=== PATIENT | female | born 1990 | race Caucasian/White ===

== ENCOUNTER → 2018-05-25 08:30 | Outpatient (CLI) | payer OTHER, SELFPAY | PROVIDERS: Family Provider Internal Medicine; PCP Internal Medicine; Visit Provider Family Medicine | DX: Z53.8 Procedure and treatment not carried out for other reasons (principal) ==

== ENCOUNTER → 2018-06-15 12:00 | Outpatient (CLI) | payer OTHER, MEDICAID, SELFPAY ==
--- NOTE | 2018-06-15 12:02 | DI.US.S_ITS ---
PROCEDURE: US OB <= 14 WEEKS FETUS INDICATIONS: DATES OUTSIDE/PRIOR DATING DATA: Last menstrual period (LMP): Unknown. LMP-based estimated date of delivery (KAIN): N./A.. First dating scan (date and location): 06/15/18. Estimated date of delivery (KAIN) from first dating scan: 01/27/19. TECHNIQUE: Real-time scanning was performed of the fetus and maternal pelvic organs, with image documentation. COMPARISON: None. FINDINGS: Embryo: Lambert-rump length measures 1.4 cm corresponding to 7 weeks 5 days. Heart rate measures 163 beats per minute. Measurement variability in dating: +/- 4 weeks by LMP, +/- 7 days by mean sac diameter (use before 6 weeks gestation if crown-rump length not able to be measured), +/- 5 days by crown-rump length (up to 8 weeks 6 days gestation), +/- 7 days by crown-rump length (up to 13 weeks 6 days gestation). Maternal organs: Ovaries within normal limits. Limited images through the kidneys demonstrate no hydronephrosis. IMPRESSION: 7 week 5 day single living IUP. Dictated by: Aakash Caro [facility] Interpreted: Uli Reyez MD on 06/15/2018 at 14:02 Approved by: Uli Reyez M.D. on 06/15/2018 at 18:04
== END ==
PROVIDERS: PCP Internal Medicine; Visit Provider Family Medicine
DX: Z34.91 Encounter for supervision of normal pregnancy, unspecified, first trimester (principal); Z3A.01 Less than 8 weeks gestation of pregnancy
CPT/HCPCS: 76801; 76817

== ENCOUNTER → 2018-06-17 10:00 | Outpatient (CLI) | payer OTHER, MEDICAID, SELFPAY ==
[2018-06-17 10:56] LABS: Add Manual Diff / Slide Review NO; Basophils Percent Auto 0.3 % (0-2); Eosinophils Percent Auto 0.3 % (2-4); Hematocrit 40.9 % (36-46); Lymphocytes Percent Auto 26.1 % (25-40); Mean Corpuscular HGB Conc 34.1 % (30-36); Mean Corpuscular Hemoglobin 31.5 PG (26-34); Mean Corpuscular Volume 92.2 fL (80-100); Monocytes Percent Auto 4.8 % (3-14); Neutrophils Absolute Auto 5400 /uL (3000-5900); Neutrophils Percent Auto 68.5 % (50-75); Platelet Count 208 X10^3/uL (150-400); Red Blood Cell Count 4.43 X10^6/uL (4.0-5.2); Red Cell Distribution Width 13.2 % (11.6-14.8); White Blood Cell Count 7.9 X10^3/uL (4.5-11.0)
[2018-06-17 11:57] LABS: Appearance Urine UA CLEAR; Bilirubin Urine UA NEGATIVE (NEGATIVE); Color Urine UA YELLOW; Glucose Urine UA NEGATIVE (Normal); Ketones Urine UA NEGATIVE (NEGATIVE); Leukocyte Esterase Urine UA NEGATIVE (NEGATIVE); Nitrite Urine UA NEGATIVE (Negative); Occult Blood Urine UA NEGATIVE (Negative); Protein Urine UA NEGATIVE (Negative); Specific Gravity Urine UA 1.015 (1.000-1.035); Urobilinogen Urine UA 0.2 E.U./dL (0.2); pH Urine UA 7.5 (4.5-8.0)
[2018-06-17 12:10] LABS: Hepatitis B Surface Antigen NEGATIVE s/c (NEGATIVE); Rubella Antibody IgG 52.7 IU/mL (>15)
[2018-06-17 12:29] LABS: HIV 1 and 2 Antibody NEGATIVE (NEGATIVE); Hep C Virus Ab w/Reflex Quant NEGATIVE s/c (NEGATIVE)
[2018-06-18 14:30] LABS: HSV 2 IGG AB < 0.90 index (< 0.90); HSV1IGG 8.48 index (< 0.90)
[2018-06-18 14:32] LABS: RPR Screen Nonreactive (Nonreactive)
== END ==
PROVIDERS: PCP Internal Medicine; Visit Provider Family Medicine
DX: Z34.81 Encounter for supervision of other normal pregnancy, first trimester (principal); Z3A.01 Less than 8 weeks gestation of pregnancy
CPT/HCPCS: 36415; 80055; 81003; 86695; 86696; 86703; 86787; 86803; 86850; 86900; 86901

== ENCOUNTER → 2018-08-21 09:41 | Outpatient (CLI) | payer OTHER, MEDICAID, SELFPAY ==
[2018-08-25 14:29] LABS: AFP, Serum 46.4 ng/mL; Calc Gestational Age 17.6; Cigarette Smoker N; Donated Egg NOT GIVEN; Donor Egg Age NOT GIVEN; Estriol, Free 1.14 ng/mL; Inhibin A, Dimeric 108 pg/mL; Maternal Weight 170 lbs; Number of Fetuses 1; Previous Pregnancy Down Syndro NOT GIVEN; hCG, MoM 0.79; hCG, Serum 18.7 IU/mL
== END ==
PROVIDERS: PCP Internal Medicine; Visit Provider Family Medicine
DX: Z34.91 Encounter for supervision of normal pregnancy, unspecified, first trimester (principal); Z3A.16 16 weeks gestation of pregnancy
CPT/HCPCS: 36415; 82105; 82677; 84702; 86336

== ENCOUNTER → 2018-09-10 10:07 | Outpatient (CLI) | payer OTHER, MEDICAID, SELFPAY ==
--- NOTE | 2018-09-10 10:10 | DI.US.S_ITS ---
PROCEDURE: US OB >= 14 WEEKS FETUS INDICATIONS: ANATOMY OUTSIDE/PRIOR DATING DATA: Last menstrual period (LMP): Unknown. LMP-based estimated date of delivery (KAIN): N./A.. First dating scan (date and location): 06/15/18. Estimated date of delivery (KAIN) from first dating scan: 01/27/19.. TECHNIQUE: Real-time scanning was performed of the fetus, with image documentation and biometric measurements. Endovaginal scanning: No COMPARISON: [facility], OB <= 14 WEEKS FETUS, 06/15/2018, 12:29. FINDINGS: General: A single living intrauterine gestation is present. Presentation: Vertex. Placenta: Placental position is anterior, without previa. Amniotic fluid index: 18.0 cm, normal range is 5-24 cm. heart rate: 155 beats per minute. Maternal cervical canal: 3.2 cm long. Normal lower limit is 2.5 cm. biometrics: Biparietal diameter: 20 weeks 6 days Head circumference: 21 weeks 5 days Abdominal circumference: 21 weeks 4 days Femur length: 20 weeks 3 days Estimated gestational age from initial scan: 20 weeks 1 day Composite gestational age from present scan: 21 weeks 1 day Estimated weight and percentile: 399 g; 91st percentile Measurement variability for biometric dating: +/- 7 days from 14 weeks to 15 weeks 6 days gestation, +/- 10 days from 16 weeks to 21 weeks 6 days gestation, +/- 2 weeks from 22 weeks to 27 weeks 6 days gestation, +/- 3 weeks for 28 weeks gestation or later. weight reference: 4500 g or EFW >90/95% is considered macrosomia or large for gestational age. EFW <10% is small for gestational age. EFW 5% or less is considered intra-uterine growth restriction. Anatomic survey: Neuro: Ventricles are non-dilated at less than 10 mm. Cisterna magna is normal at 3-11 mm. Cerebellum is normal in size and morphology. Nuchal skin fold: Normal at less than 6 mm between 14-21 weeks gestational age. Face: Nose and lips, facial profile are normal. Spine: No evidence for spina bifida. Heart: 4-chambered heart is present, with normal ventricular outflow tracts. Diaphragm: Diaphragm is intact. Stomach: Left-sided stomach is present. Kidneys: No hydronephrosis. Normal is less than 5 mm in 2nd trimester, less than 7 mm in 3rd trimester. Cord: 3-vessel cord has orthotopic insertion. Bladder: Normal in size. Extremities: All 4 extremities identified. IMPRESSION: 1. Single living intrauterine demonstrating interval growth with estimated weight at the 91st percentile. Recommend continued attention on followup 2. Normal anatomic survey. Dictated by: Aakash Caro [facility] Interpreted: Valerio Croft MD on 09/10/2018 at 14:40 Approved by: Valerio Croft M.D. on 09/10/2018 at 15:16
== END ==
PROVIDERS: PCP Internal Medicine; Visit Provider Family Medicine
DX: Z36.89 Encounter for other specified antenatal screening (principal); Z3A.21 21 weeks gestation of pregnancy
CPT/HCPCS: 76811

== ENCOUNTER → 2018-10-16 09:15 | Outpatient (CLI) | payer OTHER, MEDICAID, SELFPAY ==
[2018-10-16 11:32] LABS: Hemoglobin 12.4 g/dL (12.0-16.0)
[2018-10-16 11:48] LABS: GTT (PREG) 1 Hour PP 50gm Dose 90 mg/dL (76-139)
== END ==
PROVIDERS: PCP Internal Medicine; Visit Provider Family Medicine
DX: Z34.82 Encounter for supervision of other normal pregnancy, second trimester (principal); Z3A.26 26 weeks gestation of pregnancy
CPT/HCPCS: 36415; 82950; 85014; 85018

== ENCOUNTER → 2018-12-14 13:06 | Outpatient (CLI) | payer OTHER, MEDICAID, SELFPAY ==
--- NOTE | 2018-12-14 13:10 | DI.US.S_ITS ---
PROCEDURE: US OB LIMITED INDICATIONS: MACROSOMIA OUTSIDE/PRIOR DATING DATA: Last menstrual period (LMP): Not available. LMP-based estimated date of delivery (KAIN): Not available. First dating scan (date and location): 06/15/18. Estimated date of delivery (KAIN) from first dating scan: The 01/27/19. TECHNIQUE: Real-time scanning was performed of the fetus, with image documentation. Endovaginal scanning: Not needed for this study COMPARISON: None. FINDINGS: A single living intrauterine gestation is present. Presentation: Vertex. Placenta: Placental position is anterior, without previa. Amniotic fluid index: 10.1 cm, normal range is 5-24 cm. heart rate: 125 beats per minute. Maternal cervical canal: Not well seen due to positioning Estimated gestational age from initial scan: 35 weeks 1 day biometry is internally consistent with a current gestational age estimate of 34 weeks 5 days, and therefore there has been appropriate interval growth with the current estimated gestational weight of 2557 g, at the 42nd percentile for current gestational age. IMPRESSION: Appropriate interval growth, no sign of macrosomia or normally elevated amniotic fluid volume. The delivery date is projected to be centered on 01/27/19, plus or -5 days, with reference to the earliest available OB ultrasound dated 06/15/18. Dictated by: Mitchel Ariza M.D. on 12/14/2018 at 14:17 Approved by: Mitchel Ariza M.D. on 12/14/2018 at 14:19
== END ==
PROVIDERS: PCP Internal Medicine; Visit Provider Family Medicine
DX: O36.63X0 Maternal care for excessive fetal growth, third trimester, not applicable or unspecified (principal); Z3A.35 35 weeks gestation of pregnancy
CPT/HCPCS: 76815

== ENCOUNTER → 2018-12-25 11:07 | Outpatient (CLI) | payer OTHER, MEDICAID, SELFPAY ==
[2018-12-26 10:36] LABS: Strep Grp B PCR NEG for Grp B Strep
== END ==
PROVIDERS: PCP Internal Medicine; Visit Provider Family Medicine
DX: Z34.83 Encounter for supervision of other normal pregnancy, third trimester (principal); Z3A.36 36 weeks gestation of pregnancy
CPT/HCPCS: 87653

== ENCOUNTER 2019-01-27 09:53 | Outpatient (CLI) | payer OTHER, MEDICAID, SELFPAY ==
--- NOTE | 2019-01-27 10:35 | PM.OBTRLD ---
Visit Information Visit Information Date of evaluation: 01/27/19 Primary OB Provider: Sofi Martin On-call OB Provider: Antoinette Mares Reason for Evaluation: Yes rupture of membranes Vital Signs Vital Signs: Blood pressure 137/90, pulse of 85 PFSH Social History Smoking Status: Former smoker Evaluation Evaluation Baseline heart rate: 130 Variability: Moderate (11-25) monitor accelerations: Present monitor decelerations: Absent Contraction Frequency (minutes): 5 Uterine Contraction Intensity: Mild Category of Tracing: I Non-invasive Membranes Rupture Test: negative Diagnosis, Plan/Disposition Final Diagnosis (1) 40 weeks gestation of : Current Visit: Yes Status: Acute (2) Premature uterine contractions: Current Visit: Yes Status: Acute Plan/Disposition Plan: Patient does not appear to be in active labor and AmniSure was negative for rupture membranes. Patient was discharged OB Disposition: home
== END 2019-01-27 10:42 | disposition home or self-care (01) ==
LOC: LABOR 10:10 → OB 02-02 08:09
PROVIDERS: PCP Internal Medicine; Visit Provider Family Medicine
DX: Z3A.40 40 weeks gestation of pregnancy (principal); O47.9 False labor, unspecified
CPT/HCPCS: 59025; 84112; G0378; G0379

== ENCOUNTER 2019-01-28 09:01 | Inpatient (IN) | payer OTHER, MEDICAID, SELFPAY ==
[2019-01-28] MEDS: MORPHINE 10 MG/ML INJ IM (10:50)
[2019-01-28] MEDS: OXYTOCIN 10 UNIT/ML VIAL IM (10:50)
--- NOTE | 2019-01-28 11:02 | PM.OBPRVD ---
Delivery date: 01/28/19 Intrapartal events: Precipitous Labor < 3 hours Delivery monitor: external FHT Route of delivery: L&D Laceration Description: None Estimated blood loss (mL): 100 Anesthesia type: None Narrative: Patient is a 28-year-old at 40 weeks and 3 days gestation KAIN: 01/25/19 Hospital problems: 40 weeks of Contractions began at approximately 6:30 a.m.. Patient presented to the center at 9:15 a.m. and was found to be 3 cm. heart tones were category 2 due to intermittent variable decelerations. At approximately 10:00 a.m. contractions became much more painful. At 10:35 a.m. patient was found to be complete and pushing involuntarily. delivered at 10:38 a.m. after reduction of a nuchal cord x1. Presentation was vertex and NATE. Infant was immediately placed on mother's abdomen. Cord was clamped and cut. Apgars were 8 and 9. No resuscitation of the required. No analgesia for labor. Placenta delivered spontaneously at 10:49 a.m. with a three-vessel cord and appeared intact. Uterine fundus firm at umbilicus. There were no perineal or vaginal lacerations. IM Pitocin given after delivery of placenta. Complications: None EBL: 100 mL. Needle and sponge counts were correct. The vagina was inspected and no items were left in situ. Patient was doing well with Antoine, her and fiancee at bedside. Baby 1: gender: Male Presentation: vertex Placenta delivery description: Spontaneous cord vessel description: Nuchal Cord (x1, reduced) score (1 min): 8 score (5 min): 9
--- NOTE | 2019-01-28 11:03 | P.HPOB_ITS ---
OB HPI Date/Time Date of admission: 01/28/19 Date Patient Seen: 01/28/19 Time Patient Seen: 10:30 History of Present Condition Chief complaint: OBS : 2 Para: 1 Estimated Date of Delivery: 01/25/19 Estimated Gestational Age (weeks): 40w3d Narrative: Jeanette Byrd is a 28 year old at 40 weeks and 3 days gestation. complicated by history of HSV only on prophylactic acyclovir with no outbreaks is . Patient presented to the Center with regular contractions since approximately 6:30 a.m.. History of Present care: good care, initiated at week # (9), number of visits (13) and pounds weight gain (55 lbs) Dating criteria: LMP confirmed by 1st trimester US Ultrasounds: normal 1st trimester US and normal mid trimester US Obstetrical complications: none Medical complications: none Preadmission Labs Blood type: O (+) positive -: Antibody screen: negative, GBS status: negative, HBsAG: negative, HIV: negative, HSV 1: positive, HSV 2: negative and RPR/VDLR: negative -: Chlamydia screen: not detected and Gonorrhea screen: not detected -: Varicella: immune HCT: 40.9 PAP: Normal Quad screen: Normal 1 hr GTT: 90 Prior (ies) History: 2014 at 40 weeks and 1 day, 8 lb 6 oz female, epidural, breast-fed 14 months Evaluation Evaluation Baseline heart rate: 125 Variability: Moderate (11-25) monitor accelerations: Present monitor decelerations: Variable Contraction Frequency (minutes): 2 Uterine Contraction Intensity: Strong/Firm Category of Tracing: II Cervical dilation (cm): 10 Cervical effacement (%): 100 station: +3 [facility] Medical History (Updated 01/28/19 @ 14:19 by Sofi Martin DO) Herpes (Chronic ~2011) H/O wisdom tooth extraction (Resolved) (spontaneous vaginal delivery) (Resolved) Surgical History S/P tonsillectomy (Resolved) Family History Grandfather No problems noted. Grandmother No problems noted. Social History (Updated 01/28/19 @ 14:19 by Sofi Martin DO) marital status: unmarried,living together number of children: 1 education level: high school occupational status: employed Smoking Status: Former smoker alcohol intake: former substance use type: does not use Family History Grandfather No problems noted. Grandmother No problems noted. Social History (Updated 01/28/19 @ 14:19 by Sofi Martin DO) marital status: unmarried,living together number of children: 1 education level: high school occupational status: employed Smoking Status: Former smoker alcohol intake: former substance use type: does not use Meds Home Medications Medication Instructions Recorded Confirmed Type clindamycin 1 % lotion 1 applictn TOP BID #60 ml 04/13/18 06/22/18 Rx 1 tab PO DAILY 06/17/18 06/22/18 History vitamin,calcium,idjcevhq-rwwl-ptvvr acid tablet miscellaneous medical supply misc #1 each 09/23/18 Rx valacyclovir 500 mg tablet 500 mg PO DAILY #30 tab 12/25/18 Rx Allergies Allergy/AdvReac Type Severity Reaction Status Date / Time No Known Drug Allergies Allergy Unverified 06/17/18 10:02 Review of Systems Review of Systems Constitutional: DENIES fever, chills, sweat Respiratory: DENIES cough, shortness of breath. Cardiovascular: DENIES chest pain, leg swelling. Neurological: DENIES headaches Exam Vital Signs (past 8 hours): Blood pressure 131/78 heart rate 75 Const General: cooperative, healthy appearing and acute distress (Delivering infant) [facility] Head: normal to inspection Ears: hearing grossly normal bilaterally Nose: external nose normal Face and sinus: normal facial exam Mouth: oral mucosae normal Teeth and gingiva: dentition normal Eyes General: appearance normal, both eyes and all related structures Neck Neck: normal visual inspection Resp Effort & Inspection: normal respiratory effort Auscultation: clear to auscultation bilaterally Cardio Rate: regular rate Rhythm: regular rhythm GI Other: Gravid External Female Exam: external appearance normal Manual OB Exam: dilated 10, effaced fully and station '+3 Presentation: vertex Estimated Weight (lbs): 8 Amniotic Fluid: meconium Extrem General: normal to inspection and no pedal edema Objective Labs Result Diagrams: 01/28/19 13:27 Assessment and Plan Assessment and Plan Assessment and Plan narrative: 28-year-old now 2 status post precipitous vaginal delivery. Patient presented to the center and was 3 cm on admission and ashley every 2 minutes. She progressed very rapidly and an hour later delivered precipitously with terminal meconium. Patient and mother did very well after delivery. Plan Routine care
[2019-01-28 13:50] LABS: Add Manual Diff / Slide Review NO; Basophils Absolute Auto 100 /uL (0-100); Basophils Percent Auto 0.7 % (0-2); Eosinophils Absolute Auto 0 /uL (0-450); Hematocrit 35.6 % (36-46); Hemoglobin 11.6 g/dL (12.0-16.0); Lymphocytes Absolute Auto 1300 /uL (1100-4500); Lymphocytes Percent Auto 6.3 % (25-40); Mean Corpuscular HGB Conc 32.7 % (30-36); Mean Corpuscular Hemoglobin 26.5 PG (26-34); Monocytes Absolute Auto 800 /uL (0-900); Monocytes Percent Auto 3.8 % (3-14); Neutrophils Absolute Auto 19100 /uL (1500-7000); Neutrophils Percent Auto 89.2 % (50-75); Platelet Count 217 X10^3/uL (150-400); Red Blood Cell Count 4.39 X10^6/uL (4.0-5.2); Red Cell Distribution Width 15.1 % (11.6-14.8); White Blood Cell Count 21.4 X10^3/uL (4.5-11.0)
[2019-01-28] MEDS: IBUPROFEN 600 MG TABLET PO ×2 (15:40→23:40)
[2019-01-28 16:48] VITALS: BP 120/77
[2019-01-28] MEDS: DERMOPLAST SPRAY 20% 60 ML 1 SPRAY TOP (21:20)
[2019-01-28 23:40] VITALS: TEMP 36.9
[2019-01-29] MEDS: IBUPROFEN 600 MG TABLET PO ×2 (05:45→11:47)
--- NOTE | 2019-01-29 08:23 | P.DS_ITS ---
Discharge Providers Date of admission: 01/28/19 09:01 Discharge Date: 01/29/19 Primary care physician: ABHAY Vazquez Consults: 01/28/19 11:01 Consult to Vice President Of Customer Service Routine Comment: Discharge provider: Sofi Martin DO Summary Date Patient Seen: 01/29/19 Time Patient Seen: 08:05 Procedures: Spontaneous vaginal Hospital Course: Patient is a 28-year-old G2 now P2 1 day after uncomplicated precipitous spontaneous vaginal delivery. She presented to the center in active labor and delivered a vigorous male 1 hour later. There was no time for an epidural, much to her disappointment. She did not sustain any lacerations. course has been uncomplicated. Bleeding as expected, pain well controlled with ibuprofen, breast-feeding going well. She is ambulating, voiding and passing flatus. Eager to return home. Peripartum Data Delivery Method: Natural Vaginal Laceration description: None complications: none 1: Gender: Male Disposition of : home Discharge Diagnosis (1) 40 weeks gestation of : Status: Acute Status at Discharge Cognitive/behavioral status at discharge: at baseline, oriented Functional status at discharge: independent ambulation Overall status at discharge: patient is back to baseline Time Spent with Patient Total time spent providing and/or coordinating discharge services: Less than 30 minutes Objective Labs Result Diagrams: 01/28/19 13:27 Labs: Laboratory Results - last 24 hr 01/28/19 01/28/19 13:27 13:27 WBC 21.4 H RBC 4.39 Hgb 11.6 L Hct 35.6 L MCV 81.0 MCH 26.5 MCHC 32.7 RDW 15.1 H Plt Count 217 Neut % (Auto) 89.2 H Lymph % (Auto) 6.3 L [place] % (Auto) 3.8 Eos % (Auto) 0.0 L Baso % (Auto) 0.7 Neut # (Auto) 95297 H Lymph # (Auto) 1300 [place] # (Auto) 800 Eos # (Auto) 0 Baso # (Auto) 100 Blood Type O Positive Exam Vital Signs (past 8 hours): Temperature 98.4 blood pressure 118/72 heart rate 78 respirations 16 Narrative Exam Narrative: General: Awake and alert, no acute distress. HEENT: NCAT, EOMI, moist oral mucosa CV: Regular rate and rhythm, no murmurs, rubs or gallops Lungs: CTAB, no wheezes, rales, or rhonchi Abdomen: Soft, nontender; bowel tones active; uterus firm 1 cm below umbilicus Extremities: Warm, no edema, 2+ pedal pulses bilaterally Discharge Plan Discharge Plan Patient Disposition: Home Discharge comment: Call for fevers, severe pain or bleeding through more than a pad an hour Discharge Med Rec/Prescriptions Prescriptions: New ibuprofen 600 mg Tablet 600 mg PO Q6HR PRN (Reason: Pain, Mild (1-3)) Qty: 30 RF: 0 docusate sodium 250 mg Capsule 250 mg PO DAILY Qty: 30 RF: 0 Continued valacyclovir 500 mg tablet 500 mg PO DAILY Qty: 30 RF: 1 miscellaneous medical supply misc .ROUTE .MEDSUPPLY Qty: 1 RF: 1 prenat.vits,india,rrf-cmve-bihmh tablet 1 tab PO DAILY RF: 0 Discontinued clindamycin phosphate 1 % lotion 1 applictn TOP BID Qty: 60 RF: 3 Follow up/Referrals: Edna Dennison ARNP [Primary Care Provider] - Sofi Martin DO [Physician] - 6 Weeks Provider Discharge Instructions Diet: Diet as Tolerated Visit Report/Discharge Packet Visit Report Forms: Stroke Signs & Symptoms Discharge Data Primary Care Provider: Edna Dennison Attending Provider: Sofi Martin Admit Date/Time: 01/28/19 09:01
[2019-01-29 13:41] VITALS: BP 120/77; TEMP 36.9
== END 2019-01-29 15:00 | disposition home or self-care (01) | DRG 560 ==
PROVIDERS: Admitting Provider Family Medicine; PCP Internal Medicine; Visit Provider Family Medicine
DX: O98.32 Other infections with a predominantly sexual mode of transmission complicating childbirth (principal); B00.9 Herpesviral infection, unspecified; Z3A.40 40 weeks gestation of pregnancy; Z37.0 Single live birth; O69.81X0 Labor and delivery complicated by cord around neck, without compression, not applicable or unspecified
CPT/HCPCS: 36415; 59025; 59050; 59409; 84112; 85025; 86900; 86901; G0378; G0379; J2270; J2590

== ENCOUNTER → 2020-08-09 09:45 | Outpatient (CLI) | payer OTHER, MEDICAID, SELFPAY ==
[2020-08-09 10:53] LABS: COVID19 -Nasal RAPID Negative (Negative)
== END ==
PROVIDERS: PCP Family Medicine; Visit Provider Nurse Practitioner Family
DX: Z20.828 Contact with and (suspected) exposure to other viral communicable diseases (principal); R05 Cough; R51.9 Headache, unspecified
CPT/HCPCS: 87635

== ENCOUNTER → 2020-08-14 08:45 | Outpatient (CLI) | payer OTHER, MEDICAID, SELFPAY ==
[2020-08-14 10:12] LABS: COVID19 -Nasal RAPID Negative (Negative)
== END ==
PROVIDERS: PCP Family Medicine; Visit Provider Family Medicine Sleep Medicine
DX: Z01.812 Encounter for preprocedural laboratory examination (principal); Z20.828 Contact with and (suspected) exposure to other viral communicable diseases
CPT/HCPCS: 87635; C9803

== ENCOUNTER → 2022-11-28 08:35 | Outpatient (CLI) | payer OTHER, MEDICAID, SELFPAY ==
--- NOTE | 2022-11-28 08:36 | DI.US.S_ITS ---
LIMITED ULTRASOUND OF RIGHT BREAST: 11/28/2022 CLINICAL: Palpable right breast lump x 6 weeks. Comparison is made to exam dated: 11/28/2022 mammogram - [facility]. Color flow and real-time ultrasound of the right breast were performed. Newby scale images of the real-time examination were reviewed. There is a benign 2.2 cm x 0.8 cm x 2.1 cm mass in the right breast at 12 o'clock posterior depth 18 cm from the nipple with circumscribed borders and isoechoic apperance. IMPRESSION: BENIGN There is no sonographic evidence of malignancy. The 2.2 cm x 0.8 cm x 2.1 cm mass in the right breast is most consistent with a lipoma and is benign. Clinical followup is recommended. Reimaging and possible sampling could be obtained if this clinically enlarges or becomes otherwise symptomatic. This exam was interpreted at Station ID: [id number]. Electronically Signed By: Ha Estrada M.D. lc/:11/28/2022 09:49:57 letter sent: Clinical Evaluation Ultrasound BI-RADS: 2 Benign
--- NOTE | 2022-11-28 08:36 | DI.MG.S_ITS ---
BILATERAL DIGITAL DIAGNOSTIC MAMMOGRAM 3D/2D: 11/28/2022 CLINICAL: Baseline exam. Right breast mass. No prior exams were available for comparison. Both breasts are extremely dense, which lowers the sensitivity of mammography (category d />75% glandular tissue). No significant masses, calcifications, or other findings are seen in either breast. IMPRESSION: INCOMPLETE: NEEDS ADDITIONAL IMAGING EVALUATION There is no abnormality seen in the right breast to correspond with the area of clinical concern, however, ultrasound is recommended. Based on the Tyrer Cuzick model (a risk assessment model) the patient's lifetime risk is 12.8% and her 10 year risk is 0.7%. According to the ACR, ACS, and NCCN guidelines, an annual breast MRI exam along with mammogram is recommended if the patient's lifetime risk is 20% or greater. This exam was interpreted at Station ID: [id number]. NOTE: For mammograms, a report in lay terms will be sent to the patient. Approximately 15% of breast malignancies will not be visualized mammographically. In the management of a palpable breast mass, a negative mammogram must not discourage biopsy of a clinically suspicious lesion. Electronically Signed By: Ha Estrada M.D. lc/:11/28/2022 09:45:17 ACR BI-RADS Category 0: Incomplete [id number]
== END ==
PROVIDERS: PCP Family Medicine; Referring Provider Physician Assistant; Visit Provider Physician Assistant
DX: N63.15 Unspecified lump in the right breast, overlapping quadrants (principal); R92.2 Inconclusive mammogram
CPT/HCPCS: 76642; 77066; G0279

== ENCOUNTER → 2022-12-05 11:32 | Outpatient (CLI) | payer OTHER, MEDICAID, SELFPAY ==
[2022-12-05 12:05] LABS: Add Manual Diff / Slide Review NO; Basophils Absolute Auto 100 /uL (0-100); Basophils Percent Auto 0.8 % (0-2); Eosinophils Absolute Auto 0 /uL (0-450); Eosinophils Percent Auto 0.7 % (2-4); Hematocrit 43.1 % (36-46); Hemoglobin 14.8 g/dL (12.0-16.0); Lymphocytes Absolute Auto 2500 /uL (1100-4500); Lymphocytes Percent Auto 40.8 % (25-40); Mean Corpuscular HGB Conc 34.4 % (30-36); Mean Corpuscular Hemoglobin 30.9 PG (26-34); Mean Corpuscular Volume 89.7 fL (80-100); Monocytes Absolute Auto 300 /uL (0-900); Monocytes Percent Auto 4.5 % (3-14); Neutrophils Absolute Auto 3200 /uL (1500-7000); Neutrophils Percent Auto 53.2 % (50-75); Platelet Count 248 X10^3/uL (150-400); Red Cell Distribution Width 12.7 % (11.6-14.8)
[2022-12-05 12:18] LABS: Alanine Aminotransferase 20 IU/L (<35); Albumin 4.6 g/dL (3.5-5.0); Albumin Globulin Ratio 1.4 (1.0-2.8); Alkaline Phosphatase 69 U/L (38-126); Aspartate Aminotransferase 27 IU/L (14-36); BUN Creatinine Ratio 12.3 (6-22); Bilirubin Total 0.7 mg/dL (0.2-1.3); Blood Urea Nitrogen 7 mg/dL (7-17); Calcium 8.9 mg/dL (8.4-10.2); Carbon Dioxide 27 mmol/L (22-32); Chloride 103 mmol/L (98-107); Estimated Glomerular Filt Rate > 60 mL/min (>60); Globulin 3.3 g/dL (1.7-4.1); Glucose 93 mg/dL (70-100); HEMOLYSIS 16 (0-50); Potassium 4.1 mmol/L (3.4-5.1); Sodium 138 mmol/L (137-145); Total Protein 7.9 g/dL (6.3-8.2)
[2022-12-05 12:33] LABS: Vitamin D 25 Hydroxy (D3) 30.6 ng/mL (30.0-100.0)
[2022-12-05 12:49] LABS: TSH w/ Reflex to FT4 0.62 uIU/mL (0.47-4.68)
== END ==
PROVIDERS: PCP Family Medicine; Referring Provider Family Medicine; Visit Provider Family Medicine
DX: R53.83 Other fatigue (principal); E55.9 Vitamin D deficiency, unspecified
CPT/HCPCS: 36415; 80053; 82306; 84443; 85025

== ENCOUNTER → 2022-12-24 10:13 | Outpatient (CLI) | payer OTHER, MEDICAID, SELFPAY ==
--- NOTE | 2022-12-24 10:14 | DI.US.S_ITS ---
PROCEDURE: US PELVIC COMPLETE INDICATIONS: IUD check TECHNIQUE: Real-time scanning was performed of the pelvic organs, with image documentation. Additional endovaginal scanning was necessary due to incomplete visualization of the adnexal and endometrial structures by transabdominal scanning. COMPARISON: [facility], US, PELVIC COMPLETE, 12/13/2016, 7:20. FINDINGS: Uterus: Uterus is anteverted and normal in size at 8.7 x 4.3 x 5.8 cm. The myometrium is homogeneous. The endometrium measures 8 mm combined thickness. IUD within the endometrium. Ovaries: The right ovary measures 3.1 x 2.1 x 1.7 cm, with a calculated ovarian volume of 5.5 cc. The left ovary measures 2.1 x 1.7 x 2.0 cm, with a calculated ovarian volume of 3.9 cc. The ovaries have a normal sonographic appearance. Less than 12 follicles can be seen in each ovary. No adnexal masses are seen. Other: No pathologic free abdominal or pelvic fluid. IMPRESSION: IUD appears appropriately positioned within the endometrial cavity. We strive to produce accurate, complete, and clear reports of imaging services. To assist us in improving patient care, this report was composed using standard report templates and voice recognition software. Therefore, it may contain abnormal punctuation, insertions and/or omissions. Occasional wrong-word or sound-alike substitutions may occur. Though we review the report and make efforts to correct it, we do recommend that the report be read carefully in proper context to recognize any text inaccuracies. Dictated by: Luis Alberto Presley M.D. on 12/24/2022 at 11:29 Approved by: Luis Alberto Presley M.D. on 12/24/2022 at 11:38
== END ==
PROVIDERS: PCP Family Medicine; Referring Provider Family Medicine; Visit Provider Family Medicine
DX: Z30.431 Encounter for routine checking of intrauterine contraceptive device (principal)
CPT/HCPCS: 76830; 76856

== ENCOUNTER → 2025-02-10 12:08 | Outpatient (CLI) | payer OTHER, SELFPAY | PROVIDERS: Visit Provider Chiropractor | DX: J02.9 Acute pharyngitis, unspecified (principal) | CPT/HCPCS: 87070 ==

== ENCOUNTER → 2025-02-21 13:19 | Outpatient (CLI) | payer OTHER, SELFPAY | PROVIDERS: Visit Provider Chiropractor | DX: R30.0 Dysuria (principal) | CPT/HCPCS: 87086 ==

== ENCOUNTER 2025-02-21 13:47 | Emergency (ER) | payer OTHER, SELFPAY ==
[2025-02-21 14:04] VITALS: BP 147/69; PULSE 91; RESP 18; TEMP 36.8; O2SAT 98; BMI 23.9
--- NOTE | 2025-02-21 14:11 | DI.US.S_ITS ---
PROCEDURE: US PELVIC COMPLETE INDICATIONS: LLQ pain hx ovarian cyst + IUD TECHNIQUE: Real-time scanning was performed of the pelvic organs, with image documentation. Additional endovaginal scanning was necessary due to incomplete visualization of the adnexal and endometrial structures by transabdominal scanning. Color and spectral Doppler evaluation of the ovaries was performed in the setting of pelvic pain. COMPARISON: [facility], US, US PELVIC COMPLETE, 12/24/2022, 10:26. FINDINGS: Uterus: Uterus is anteverted and normal in size at 9.3 x 4.0 x 6.2 cm. The myometrium is homogeneous. The endometrium measures 5.6 mm combined thickness. Intrauterine device is seen in the endometrial canal. Ovaries: The right ovary measures 2.0 x 1.4 x 2.3 cm, with a calculated ovarian volume of 3.3 cc. The left ovary measures 2.6 x 3.5 x 1.9 cm, with a calculated ovarian volume of 9.1 cc. The ovaries have a normal sonographic appearance. Less than 12 follicles can be seen in each ovary. No adnexal masses are seen. Normal arterial and venous Doppler flow is demonstrated to each ovary. Other: No pathologic free abdominal or pelvic fluid. IMPRESSION: 1. No sonographic signs of ovarian torsion. No significant ovarian cyst. 2. Intrauterine device in expected position. Approved by: Torres Sterling M.D. on 02/21/2025 at 15:29
--- NOTE | 2025-02-21 15:03 | ED_ITS ---
<Statement entered by Konstantin Puckett, DO - 02/21/25 18:41> Co-Sign Statement I was available for consultation during this patient's emergency department visit. This chart is signed by myself for administrative purposes only. I do not have direct contact with this patient during this visit. They were seen by the APC independently. HPI - Female Genitourinary General Chief complaint: Urogenital-Female Stated complaint: Sent from [facility] Left side ovary pain x 3 days Time Seen by Provider: 02/21/25 14:10 Source: patient Mode of arrival: Ambulatory History of Present Illness HPI Narrative: This is a 34-year-old woman with a history of ovarian cyst and IUD in place presenting with concern for low left pelvic/abdominal pain present since Friday she notes that in the last day or so the pain has been radiating some to her left low back/flank. Patient states that her pain is a constant dull 6/10 and it was worse up to an 8/10 when she stands and sits and with some movements. She has not noted any fevers but did feel a little chilled once or twice in the last few days. She has had some nausea associated with the pain when it was bad but has not had any vomiting or diarrhea. She states she was eating and drinking normally. She states her periods are extremely irregular since she has had her IUD (has had for 6 years she believes it was good for 8) noting sometimes they last for only a day or so. She does state that in the past she used to have bad ovarian cyst type pain before she got her IUD and it was always worse around her menses. Denies generalized abdominal pain, fevers, urinary urgency frequency blood in her urine, or other symptoms. Patient was sent from walk-in clinic after the urine was checked and due to patient reporting pelvic pain. Related Data Previous Rx's ?Medication ?Instructions ?Recorded lamotrigine 25 mg tablet 50 mg (2 x 25 mg) PO BEDTIME Mood 12/23/24 Held on 01/26/25. Stabilization 30 days #60 ta bs Instructions: Home Medication placed on hold at Doctor's office methylphenidate HCl 5 mg tablet 10 mg (2 x 5 mg) PO QP M ADHD 12/23/24 Booster #60 tabs methylphenidate HCl 5 mg tablet 10 mg (2 x 5 mg) PO QP M ADHD 12/23/24 Booster #60 tabs methylphenidate HCl 54 mg 54 mg PO QAM ADHD #30 tabs 0 12/23/24 tablet,extended release 24 hr methylphenidate HCl 54 mg 54 mg PO QAM ADHD #30 tabs 0 12/23/24 tablet,extended release 24 hr (Concerta) hydroxyzine HCl 25 mg tablet 25 mg PO BID PRN anxiety #60 tabs 01/26/25 cefdinir 300 mg capsule 300 mg PO Q12H 7 days #14 ca ps 02/21/25 Allergies Allergy/AdvReac Type Severity Reaction Status Date / Time No Known Drug Allergies Allergy Verified 02/21/25 13:18 Review of Systems Review of Systems Narrative: See HPI Patient History Medical History Anxiety (spontaneous vaginal delivery) Herpes (~2011) Surgical History H/O wisdom tooth extraction S/P tonsillectomy Family History Grandfather No problems noted. Grandmother No problems noted. tobacco type: vaping Exam Narrative Exam Narrative: GENERAL: [34] year old patient appears stated age. Well-developed patient, in mild distress. Patient is nontoxic but is uncomfortable appearing initially, difficulty getting comfortable in seated position. HEAD: Atraumatic. Normocephalic. EYES: Pupils equal round and reactive. Extraocular motions intact. No scleral icterus. No injection or drainage. ENT: Nose without bleeding, purulent drainage. Airway patent. NECK: Trachea midline. CARDIOVASCULAR: Regular rate and rhythm without murmurs, gallops, or rubs. RESPIRATORY: Clear to auscultation. Breath sounds equal bilaterally. No wheezes, rales, or rhonchi. GASTROINTESTINAL: Abdomen soft, there is mild suprapubic tenderness and a notable left lower quadrant/pelvic tenderness. Otherwise abdomen/pelvis is Non- tender, nondistended. Negative McBurney's point tenderness, negative Hsu's sign. No CVA tenderness. EXTREMITIES: Moving all extremities, normal gait slightly slow gait 2nd and pain. BACK: Nontender without deformity or crepitance. Left low flank tenderness. No CVA tenderness noted. NEURO: AOx3. SKIN: No rash or erythema of visible areas Initial Vital Signs Initial Vital Signs: Vital Signs Temperature 98.3 F 02/21/25 14:04 Pulse Rate 91 H 02/21/25 14:04 Respiratory Rate 18 02/21/25 14:04 Blood Pressure 147/69 H 02/21/25 14:04 Pulse Oximetry 98 02/21/25 14:04 Oxygen Delivery Method Room Air 02/21/25 14:04 Course Orders Ordered: ED Orders 02/21/25 13:21 Test Urine Stat 02/21/25 14:11 US pelvic complete Stat CBC Auto Diff [Complete Blood Count AUTO DIFF] Stat CMP [Comprehensive Metabolic Panel] Stat 02/21/25 16:15 Urine Culture Stat Discontinued Medications Acetaminophen (Acetaminophen 325 Mg Tablet) 975 mg PO NOW ONE Stop: 02/21/25 14:13 Last Admin: 02/21/25 15:33 Dose: 975 mg Documented By: HANK Ketorolac Tromethamine (Ketorolac 30 Mg/Ml Vial) 30 mg IM NOW ONE Stop: 02/21/25 16:15 Last Admin: 02/21/25 16:19 Dose: Not Given Ketorolac Tromethamine (Ketorolac 30 Mg/Ml Vial) 15 mg IV NOW ONE Stop: 02/21/25 16:19 Last Admin: 02/21/25 16:23 Dose: 15 mg Ondansetron HCl (Ondansetron 4 Mg/2 Ml Inj) 4 mg IV NOW ONE Stop: 02/21/25 14:13 Last Admin: 02/21/25 16:51 Dose: Not Given Vital Signs Vital signs: Vital Signs - 8 hr 02/21/25 14:04 02/21/25 16:45 Temperature 98.3 F Pulse Rate 91 H 72 Respiratory Rate 18 16 Blood Pressure 147/69 H 109/62 Pulse Oximetry 98 99 Oxygen Delivery Method Room Air Room Air MDM - Female Genitourinary Differential Diagnosis Differential diagnosis: Likely urinary tract infection, ovarian cyst, ruptured ovarian cyst and cystitis Medical Records Attestation: I reviewed the patient's medical records. Lab Data Attestation: I reviewed the patient's lab results. 02/21/25 15:28 02/21/25 15:28 Labs: Lab Results 02/21/25 02/21/25 Range/Units 13:21 15:28 WBC 6.4 (4.5-11.0) X10^3/uL RBC 4.65 (4.0-5.2) X10^6/uL Hgb 14.7 (12.0-16.0) g/dL Hct 42.8 (36-46) % MCV 92.0 (80-100) fL MCH 31.7 (26-34) PG MCHC 34.5 (30-36) % RDW 12.8 (11.6-14.8) % Plt Count 233 (150-400) X10^3/uL Neut % (Auto) 51.9 (50-75) % Lymph % (Auto) 41.4 H (25-40) % [place] % (Auto) 4.5 (3-14) % Eos % (Auto) 1.2 L (2-4) % Baso % (Auto) 1.0 (0-2) % Neut # (Auto) 3300 (8040-0070) /uL Lymph # (Auto) 2700 (8065-9231) /uL [place] # (Auto) 300 (0-900) /uL Eos # (Auto) 100 (0-450) /uL Baso # (Auto) 100 (0-100) /uL Sodium 141 (137-145) mmol/L Potassium 3.7 (3.4-5.1) mmol/L Chloride 105 (98-107) mmol/L Carbon Dioxide 27 (22-32) mmol/L BUN 11 (7-17) mg/dL Creatinine 0.59 (0.52-1.04) mg/dL Estimated GFR > 60 (>60) mL/min BUN/Creatinine Ratio 18.6 (6-22) Glucose 78 (70-99) mg/dL Calcium 9.2 (8.4-10.2) mg/dL Total Bilirubin 0.9 (0.2-1.3) mg/dL AST 28 (14-36) IU/L ALT 19 (<35) IU/L Alkaline Phosphatase 57 (38-126) U/L Total Protein 8.3 H (6.3-8.2) g/dL Albumin 5.0 (3.5-5.0) g/dL Globulin 3.3 (1.7-4.1) g/dL Albumin/Globulin Ratio 1.5 (1.0-2.8) Urine Test Negative (Negative) Imaging Data US - PHLEBOTOMY LAB ASSISTANT: My Impression: Agree with Radiology interpretation Radiologist's Impression: [address] [address] Ultrasound Report Signed Patient: Jeanette Byrd MR#: [id number] : 1990 Acct:[id number] Age/Sex: 34 / F Date of Service: 02/21/25 Loc: ED Accession Number: [id number] Procedure: US pelvic complete Ordering Provider: Melissa Flor PA-C PROCEDURE: US PELVIC COMPLETE INDICATIONS: LLQ pain hx ovarian cyst + IUD TECHNIQUE: Real-time scanning was performed of the pelvic organs, with image documentation. Additional endovaginal scanning was necessary due to incomplete visualization of the adnexal and endometrial structures by transabdominal scanning. Color and spectral Doppler evaluation of the ovaries was performed in the setting of pelvic pain. COMPARISON: [facility], , US PELVIC COMPLETE, 12/24/2022, 10:26. FINDINGS: Uterus: Uterus is anteverted and normal in size at 9.3 x 4.0 x 6.2 cm. The myometrium is homogeneous. The endometrium measures 5.6 mm combined thickness. Intrauterine device is seen in the endometrial canal. Ovaries: The right ovary measures 2.0 x 1.4 x 2.3 cm, with a calculated ovarian volume of 3.3 cc. The left ovary measures 2.6 x 3.5 x 1.9 cm, with a calculated ovarian volume of 9.1 cc. The ovaries have a normal sonographic appearance. Less than 12 follicles can be seen in each ovary. No adnexal masses are seen. Normal arterial and venous Doppler flow is demonstrated to each ovary. Other: No pathologic free abdominal or pelvic fluid. IMPRESSION: 1. No sonographic signs of ovarian torsion. No significant ovarian cyst. 2. Intrauterine device in expected position. Approved by: Torres Sterling M.D. on 02/21/2025 at 15:29 MDM Narrative Medical decision making narrative: This is a 34-year-old woman with a history of ovarian cyst and IUD in place presenting with concern for left low pelvic pain since Friday constant ache worse with certain positions and sometimes movement. Given patient's history and exam concern for ovarian cyst and pelvic US obtained for further evaluation. Also lab CBC CMP and urine. Patient's urine was actually tested at the walk-in clinic earlier today she was sent to the ER from walk-in clinic. Reviewed this result and urine obtained on this urine from ER. negative. Urine dip does show plus or minus blood. But no leukocytes. Ultrasound returned showing no ovarian abnormality and IUD appropriately positioned in the uterus. Discuss this with the patient as well as her labs and she does prefers having any additional imaging/CT today. I think that a kidney stone ureterolithiasis is unlikely but is 1 possibility for patient's symptoms. We also discussed the possibility of a muscle strain such as psoas. We also discussed possibility of ovarian torsion and patient was counseled regarding return precautions surrounding this or additional new symptoms such as fevers chills dizziness or lightheadedness. She declined additional evaluation which I think is reasonable given duration of her symptoms and unremarkable labs and ultrasound today. Antibiotics were prescribed for presumed/possible UTI, and possible kidney infection, cefdinir 300 mg b.i.d. for 7 days. Return precautions provided, follow-up plan discussed, all questions answered. Discharge Plan Departure Patient Disposition: Home Clinical Impression: Pelvic pain, Urinary tract infection Activity Restrictions/Additional Instructions: *You have been diagnosed with [pelvic pain, possible UTI] *What to do: *Please continue to take your regular medications as directed. [ 1] New medication prescriptions sent to your pharmacy: [Cefdinir] [ ] New medication written as a paper prescription [ ] No new medications given *Please follow up with your primary care provider in 2-3 days, call for an appointment. Let them know you were seen in the Emergency Department and that we ask that you be seen in follow up. We will electronically transmit a record of today's note if your PCP is in our system. You came in today with concern for left low pelvic pain since Friday that started radiating to your back recently. With her history of ovarian cyst we did do an ultrasound today this came back as normal with no ovarian or uterine abnormality noted. Your IUD is centrally located in the correct place in your uterus. We also did some labs checking on your blood counts and electrolytes and liver and kidneys, these looked okay today. They urine dip that was obtained from walk-in clinic is slightly suspicious for urinary tract infection. Given that we do not have a clear answer for your pain and symptoms definitely reasonable to place you on antibiotics for presumptive urinary tract infection/kidney infection and please take these as prescribed for the full 7 days. Please be aware that if your pain worsens or persists you should definitely seek re-evaluation, or if you have new symptoms such as fevers chills dizziness lightheadedness change in location of your pain or other symptoms of concern it is important to be rechecked. We did not do advanced imaging with CT today to look at your entire abdomen so it certainly possible there are other causes for your pain that we were unable to diagnosed/fine today. One other possibility is that you could have a muscle strain such as in psoas muscle, which was simply take some time to heal. You can try heat over the area of your pain. And continue with Tylenol and ibuprofen. Do not take any ibuprofen or NSAID medications today as you already had Toradol which is a strong NSAID medication today in the emergency department. I hope that you feel better soon. Recommend you follow up with your primary care provider/women's health provider as needed. *If you do not have a primary care provider please contact the [facility] Resource line at [phone]. They will ask some questions about your medical history and help get you set up with a doctor in the community. *Return to Emergency Department if you should have any new, worsening or concerning symptoms, such as [fever greater than 101 F, shaking chills, worsening pain, persistent vomiting or other bothersome symptoms] Prescriptions: New cefdinir 300 mg capsule 300 mg PO Q12H 7 Days Qty: 14 0RF No Action methylphenidate HCl [Concerta] 54 mg tablet extended release 24hr 54 mg PO QAM Qty: 30 0RF methylphenidate HCl 5 mg tablet 10 mg PO QPM Qty: 60 0RF methylphenidate HCl 5 mg tablet 10 mg PO QPM Qty: 60 0RF lamotrigine 25 mg tablet 50 mg PO BEDTIME 30 Days Qty: 60 2RF methylphenidate HCl 54 mg tablet extended release 24hr 54 mg PO QAM Qty: 30 0RF hydroxyzine HCl 25 mg tablet 25 mg PO BID PRN (Reason: anxiety) Qty: 60 2RF Stand Alone Forms: Patient Portal/API, Work Release Note
[2025-02-21] MEDS: ACETAMINOPHEN 325 MG TABLET 975 MG PO (15:33)
[2025-02-21 15:44] LABS: Add Manual Diff / Slide Review NO; Hematocrit 42.8 % (36-46); Hemoglobin 14.7 g/dL (12.0-16.0); Lymphocytes Absolute Auto 2700 /uL (1100-4500); Mean Corpuscular HGB Conc 34.5 % (30-36); Mean Corpuscular Hemoglobin 31.7 PG (26-34); Mean Corpuscular Volume 92.0 fL (80-100); Platelet Count 233 X10^3/uL (150-400)
[2025-02-21 16:00] LABS: Alanine Aminotransferase 19 IU/L (<35); Albumin 5.0 g/dL (3.5-5.0); Albumin Globulin Ratio 1.5 (1.0-2.8); Alkaline Phosphatase 57 U/L (38-126); Blood Urea Nitrogen 11 mg/dL (7-17); Calcium 9.2 mg/dL (8.4-10.2); Carbon Dioxide 27 mmol/L (22-32); Chloride 105 mmol/L (98-107); Estimated Glomerular Filt Rate > 60 mL/min (>60); Globulin 3.3 g/dL (1.7-4.1); Glucose 78 mg/dL (70-99); HEMOLYSIS 29 (0-50); Potassium 3.7 mmol/L (3.4-5.1); Sodium 141 mmol/L (137-145); Total Protein 8.3 g/dL (6.3-8.2)
[2025-02-21] MEDS: KETOROLAC 30 MG/ML VIAL 15 MG IV (16:23)
[2025-02-21 16:45] VITALS: BP 109/62; PULSE 72; RESP 16; O2SAT 99
== END 2025-02-21 16:50 | disposition home or self-care (01) ==
PROVIDERS: Emergency Provider Student in an Organized Health Care Education/Training Program
DX: R10.2 Pelvic and perineal pain (principal); N39.0 Urinary tract infection, site not specified; Z97.5 Presence of (intrauterine) contraceptive device; Z87.42 Personal history of other diseases of the female genital tract; M54.50 Low back pain, unspecified; R30.0 Dysuria
CPT/HCPCS: 36415; 76830; 76856; 80053; 81025; 85025; 87086; 93975; 96374; 99284; J1885